=== PATIENT | male | born 1995 ===

== ENCOUNTER 2017-06-06 14:27 | Emergency (ER) | payer MEDICAID ==
[2017-06-06 14:28] VITALS: BMI 25.1
[2017-06-06 14:51] VITALS: O2SAT 98
[2017-06-06 16:05] VITALS: RESP 18; TEMP 98
--- NOTE | 2017-06-06 16:32 | RAD ---
PROCEDURE: Left Hand Radiographs. HISTORY: punched sign, pain 4-5th metacarpals COMPARISON: None. FINDINGS: BONES: Fifth metacarpal distal metaphyseal mildly comminuted fracture with dorsal apical angulation. No metacarpal phalangeal joint extension. JOINTS: Normal. No osteoarthritic changes. SOFT TISSUES: Normal. OTHER FINDINGS: None. IMPRESSION: Acute 5th metacarpal fracture -dorsal apical angulation
--- NOTE | 2017-06-06 16:42 | ED PDOC ---
Arrival/HPI - General Chief Complaint: Upper Extremity Problem/Injury Time Seen by Provider: 06/06/17 15:06 Historian: Patient - History of Present Illness Narrative History of Present Illness (Text): 06/06/17 16:38 22-year-old male presents today with left hands pain status post injury 2 days ago. Patient states he punches sign and sustained injury to the left fifth finger. Patient complaining of limited range of motion of the finger. He is complaining of pain and swelling. He denies wrist pain. No medications taken for pain at home. Patient denies numbness weakness or tingling. No other complaints Time/Duration: Other (2 days) Symptom Onset: Sudden Symptom Course: Unchanged Quality: Aching Severity Level: 6 Past Medical History - Provider Review Nursing Documentation Reviewed: Yes - Travel History Have you recently traveled outside [place] w/in the past 3 mons?: No - Infectious Disease Hx of Infectious Diseases: None - Tetanus Immunization Tetanus Immunization: Unknown - Cardiac Hx Cardiac Disorders: No - Pulmonary Hx Bronchitis: Yes Hx Pneumonia: Yes - Neurological Hx Neurological Disorder: No - Endocrine/Metabolic Hx Endocrine Disorders: No - Hematological/Oncological Hx Blood Disorders: No - Musculoskeletal/Rheumatological Hx Musculoskeletal Disorders: No - Psychiatric Hx Substance Use: Yes - Anesthesia Hx Anesthesia: No - Suicidal Assessment Feels Threatened In Home Enviroment: No Family/Social History - Physician Review Nursing Documentation Reviewed: Yes Family/Social History: Unknown Family HX Smoking Status: Current Some Days Smoker Hx Alcohol Use: Yes Hx Substance Use: Yes Substance used: marijuana Allergies/Home Meds Allergies/Adverse Reactions: Allergies No Known Allergies Allergy (Verified 06/06/17 14:51) Review of Systems - Review of Systems Constitutional: absent: Fatigue, Fevers Respiratory: absent: SOB, Cough Cardiovascular: absent: Chest Pain, Palpitations Gastrointestinal: absent: Abdominal Pain, Nausea, Vomiting Musculoskeletal: Arthralgias Skin: absent: Rash, Pruritis Neurological: absent: Headache, Dizziness Physical Exam Vital Signs Reviewed: Yes Vital Signs Temp Pulse Resp BP Pulse Ox 06/06/17 16:04 98.0 F 64 18 108/65 98 06/06/17 14:47 97.7 F 60 16 110/64 98 Temperature: Afebrile Blood Pressure: Normal Pulse: Regular Respiratory Rate: Normal Appearance: Positive for: Well-Appearing, Non-Toxic, Comfortable Pain Distress: None Mental Status: Positive for: Alert and Oriented X 3 - Systems Exam Head: Present: Atraumatic Respiratory/Chest: Present: Clear to Auscultation Cardiovascular: Present: Regular Rate and Rhythm Upper Extremity: Present: NORMAL PULSES, Tenderness (left hand; + ttp and swelling over the 4th and 5th metacarpals; limited extension of 5th finger. + ecchymosis extending from MCP to middle phalanx; sensation and distal pulses intact. cap refill <2. no wrist tenderness. ), Swelling, Neurovascularly Intact , Capillary Refill < 2s. No: Normal ROM, Erythema Neurological: Present: GCS=15 Skin: Present: Warm, Dry Psychiatric: Present: Alert, Oriented x 3 Medical Decision Making ED Course and Treatment: 06/06/17 16:40 Patient nontoxic well-appearing in no distress with stable vital signs X-rays of the left hand:FINDINGS: BONES: Fifth metacarpal distal metaphyseal mildly comminuted fracture with dorsal apical angulation. No metacarpal phalangeal joint extension. JOINTS: Normal. No osteoarthritic changes. SOFT TISSUES: Normal. OTHER FINDINGS: None. IMPRESSION: Acute 5th metacarpal fracture -dorsal apical angulation Toradol, tramadol Patient placed in ulnar gutter splint I discussed all results with patient advised to followup with the orthopedist/ hand specialist for the next 2 days. Return if symptoms worsen persist or new symptoms develop Patient verbalizes understanding of discharge instructions and need for immediate followup. all aspects of this case were discussed the attending of record. Impression: metacarpal fracture Motrin every 6 hours as needed for pain tramadol; 1 tablet every 6 hours as needed for moderate to severe pain. may cause drowsiness. Rest, ice, compression, elevation Followup with the orthopedist/hand specialist within the next 2 days Followup with primary care physician within the next 2 days Return if any other concerning symptoms develop - RAD Interpretation Radiology Orders: 06/06/17 15:07 HAND LEFT 3 VIEWS ROUTINE [RAD] Stat - Medication Orders Current Medication Orders: Discontinued Medications Ketorolac Tromethamine (Toradol) 60 mg IM STAT STA Stop: 06/06/17 15:07 Last Admin: 06/06/17 15:34 Dose: 60 mg MAR Pain Assessment Document 06/06/17 15:34 CNR (Rec: 06/06/17 15:34 CNR [id number]) Pain Reassessment Is this a pain reassessment? Yes IM Administration Charges Document 06/06/17 15:34 CNR (Rec: 06/06/17 15:34 CNR [id number]) Charges for Administration # of IM Administrations 1 Tramadol HCl (Ultram) 50 mg PO STAT STA Stop: 06/06/17 15:07 Last Admin: 06/06/17 15:34 Dose: 50 mg MAR Pain Assessment Document 06/06/17 15:34 CNR (Rec: 06/06/17 15:34 CNR [id number]) Pain Reassessment Is this a pain reassessment? Yes Procedures - Splinting Location: left hand Hand-Made Type: fiberglass Splint: ulnar (ulnar gutter) Pre-Proc Neuro Vasc Exam: normal Post-Proc Neuro Vasc Exam: normal Disposition/Present on Arrival - Present on Arrival Any Indicators Present on Arrival: No History of DVT/PE: No History of Uncontrolled Diabetes: No Urinary Catheter: No History of Decub. Ulcer: No History Surgical Site Infection Following: None - Disposition Have Diagnosis and Disposition been Completed?: Yes Diagnosis: Fracture, metacarpal Disposition: HOME/ ROUTINE Disposition Time: 16:43 Patient Plan: Discharge Patient Problems: Current Active Problems Problem Status Onset Fracture, metacarpal Acute Condition: GOOD Discharge Instructions (ExitCare): Hand Fracture (ED) Additional Instructions: Motrin every 6 hours as needed for pain tramadol; 1 tablet every 6 hours as needed for moderate to severe pain. may cause drowsiness. Rest, ice, compression, elevation Followup with the orthopedist/hand specialist within the next 2 days Followup with primary care physician within the next 2 days Return if any other concerning symptoms develop Prescriptions: Ibuprofen [Motrin] 600 mg PO Q6H PRN #20 tab PRN Reason: pain/fever reduction traMADol [Ultram] 50 mg PO Q6H PRN #6 tab PRN Reason: moderate to severe pain Referrals: Bubba Dukes MD [Primary Care Provider] - Follow up with primary Migel Juárez MD [Staff Provider] - Follow up with primary Romulo Dickey DO [Staff Provider] - Follow up with primary Jayden Welch MD [Staff Provider] - Follow up with primary [facility] [Outside] - Follow up with primary [facility] [Outside] - Follow up with primary Forms: [facility] (Maltese), WORK NOTE
[2017-06-06 17:34] VITALS: BP 110/68; PULSE 66
== END 2017-06-06 17:35 | disposition home or self-care (01) ==
LOC: ED 14:27
DX: S62.307A Unspecified fracture of fifth metacarpal bone, left hand, initial encounter for closed fracture (principal); W22.8XXA Striking against or struck by other objects, initial encounter
CPT/HCPCS: 29125; 73130; 96372; 99284; J1885

== ENCOUNTER 2017-11-27 16:35 | Emergency (ER) | payer MEDICAID ==
[2017-11-27 16:35] VITALS: BMI 25.1
[2017-11-27 16:54] VITALS: O2SAT 99
--- NOTE | 2017-11-27 18:03 | ED PDOC ---
Arrival/HPI - General Historian: Patient - History of Present Illness Time/Duration: > week Symptom Onset: Sudden Symptom Course: Unchanged Quality: Burning Severity Level: 4 Activities at Onset: Rest, Light Context: Home <Viola Gentile - Last Filed: 11/27/17 20:29> <Felix Redding - Last Filed: 11/27/17 21:43> - General Chief Complaint: Abnormal Skin Integrity Time Seen by Provider: 11/27/17 17:53 - History of Present Illness Narrative History of Present Illness (Text): 11/27/17 17:55 Pt is a 22 yr old male who presents with right forearm discoloration and edema s /p laceration with glass imbedded in the arm 2 weeks ago. Pt says he was treated at [facility], given Keflex and told to follow up with surgery. Pt admits that he stopped taking Keflex before it was done and cannot receive surgery to remove the glass until his insurance is cleared. Reports that he noticed recently, a sharp pain in the forearm and discoloration on the ventral aspect of the wrist. Denies loss of motor or sensation of the right arm but is point tender and taut around the lacerations. Received tetanus booster while at [facility]. (Viola Gentile) Past Medical History - Provider Review Nursing Documentation Reviewed: Yes - Travel History Have you recently traveled outside [place] w/in the past 3 mons?: No - Infectious Disease Hx of Infectious Diseases: None - Tetanus Immunization Tetanus Immunization: Unknown - Cardiac Hx Cardiac Disorders: No - Pulmonary Hx Respiratory Disorders: Yes Hx Bronchitis: Yes Hx Pneumonia: Yes - Neurological Hx Neurological Disorder: No - Renal Hx Renal Disorder: No - Endocrine/Metabolic Hx Endocrine Disorders: No - Hematological/Oncological Hx Blood Disorders: No - Integumentary Hx Dermatological Disorder: Yes Other/Comment: FB - Musculoskeletal/Rheumatological Hx Musculoskeletal Disorders: No - Gastrointestinal Hx Gastrointestinal Disorders: No - Genitourinary/Gynecological Hx Genitourinary Disorders: No - Psychiatric Hx Psychophysiologic Disorder: No Hx Substance Use: Yes (CANNABIS) - Anesthesia Hx Anesthesia: No - Suicidal Assessment Feels Threatened In Home Enviroment: No <Viola Gentile - Last Filed: 11/27/17 20:29> Family/Social History - Physician Review Nursing Documentation Reviewed: Yes Family/Social History: Unknown Family HX Smoking Status: Current Some Days Smoker Hx Alcohol Use: Yes Frequency of alcohol use: Socially Hx Substance Use: Yes (CANNABIS) Substance used: marijuana <Viola Gentile - Last Filed: 11/27/17 20:29> Allergies/Home Meds <Viola Gentile - Last Filed: 11/27/17 20:29> <MinaFelix calix - Last Filed: 11/27/17 21:43> Allergies/Adverse Reactions: Allergies No Known Allergies Allergy (Verified 11/27/17 16:49) Review of Systems - Review of Systems Constitutional: Normal Eyes: Normal ENT: Normal Respiratory: Normal Cardiovascular: Normal Gastrointestinal: Normal Genitourinary Male: Normal Musculoskeletal: Normal Skin: Normal, Other (Right forearm pain) Neurological: Normal Endocrine: Normal Hemo/Lymphatic: Normal Psychiatric: Normal <Viola Gentile - Last Filed: 11/27/17 20:29> Physical Exam Vital Signs Reviewed: Yes Temperature: Afebrile Blood Pressure: Normal Pulse: Regular Respiratory Rate: Normal Appearance: Positive for: Well-Appearing, Non-Toxic, Comfortable Pain Distress: None Mental Status: Positive for: Alert and Oriented X 3 - Systems Exam Head: Present: Atraumatic, Normocephalic Pupils: Present: PERRL Extroacular Muscles: Present: EOMI Conjunctiva: Present: Normal Mouth: Present: Moist Mucous Membranes Neck: Present: Normal Range of Motion Respiratory/Chest: Present: Clear to Auscultation, Good Air Exchange. No: Respiratory Distress, Accessory Muscle Use Cardiovascular: Present: Regular Rate and Rhythm, Normal S1, S2. No: Murmurs Abdomen: No: Tenderness, Distention, Peritoneal Signs Back: Present: Normal Inspection Upper Extremity: Present: Normal Inspection. No: Cyanosis, Edema Lower Extremity: Present: Normal Inspection. No: Edema Neurological: Present: GCS=15, CN II-XII Intact, Speech Normal Skin: Present: Warm, Dry, Normal Color. No: Rashes Psychiatric: Present: Alert, Oriented x 3, Normal Insight, Normal Concentration <Viola Gentile - Last Filed: 11/27/17 20:29> Vital Signs Temp Pulse Resp BP Pulse Ox 11/27/17 16:49 99.0 F 90 16 122/74 99 Medical Decision Making <Viola Gentile - Last Filed: 11/27/17 20:29> <Felix Redding - Last Filed: 11/27/17 21:43> ED Course and Treatment: 11/27/17 18:03 Impression Pt is a 22 yr old male who presents with right forearm discoloration and edema s /p laceration with glass imbedded in the arm 2 weeks ago. On exam, there is mild erythema around the right wrist and evidence of granulation tissue around lacerations with mild edema; motor and sensation intact Plan Right forearm XR Assess and dispo Progress note 11/27/17 19:18 Labs wnl results of XR still pending dose of Keflex 250mg po STAT (Viola Gentile) - Lab Interpretations Lab Results: 11/27/17 18:45 11/27/17 18:45 Lab Results 11/27/17 18:45: Sodium 142, Potassium 4.1, Chloride 105, Carbon Dioxide 25, Anion Gap 16, BUN 13, Creatinine 0.8, Est GFR ( Amer) > 60, Est GFR (Non- Af Amer) > 60, Random Glucose 92, Calcium 9.6, Total Bilirubin 0.8, AST 24, ALT 30, Alkaline Phosphatase 78, Total Protein 7.9, Albumin 4.7, Globulin 3.2, Albumin/Globulin Ratio 1.5 11/27/17 18:45: Urine Color Yellow, Urine Appearance Clear, Urine pH 6.0, Ur Specific [place] >= 1.030, Urine Protein Negative, Urine Glucose (UA) Negative, Urine Ketones Negative, Urine Blood Trace-intact H, Urine Nitrate Negative, Urine Bilirubin Negative, Urine Urobilinogen 0.2, Ur Leukocyte Esterase Negative , Urine RBC 1 - 3, Urine WBC 0 - 2, Ur Epithelial Cells 0 - 2, Urine Bacteria Few 11/27/17 18:45: WBC 5.8, RBC 4.84, Hgb 14.9, Hct 40.9 L, MCV 84.5, MCH 30.8, MCHC 36.4, RDW 12.0, Plt Count 364, MPV 9.9, Gran % 56.8, Lymph % (Auto) 33.7, [place]ion % (Auto) 8.6 H, Eos % (Auto) 0.7 L, Baso % (Auto) 0.2, Gran # 3.30, Lymph # (Auto) 2.0, Irion # (Auto) 0.5, Eos # (Auto) 0.0, Baso # (Auto) 0.01 - RAD Interpretation Radiology Orders: 11/27/17 17:53 FOREARM RIGHT [RAD] Stat - Medication Orders Current Medication Orders: Discontinued Medications Cephalexin Monohydrate (Keflex) 250 mg PO STAT STA PRN Reason: Protocol Stop: 11/27/17 19:17 - PA / REHABILITATION CONSULTANT / Resident Statement MD/DO has reviewed & agrees with the documentation as recorded. <Felix Redding - Last Filed: 11/27/17 21:43> Disposition/Present on Arrival - Present on Arrival Any Indicators Present on Arrival: Yes History of DVT/PE: No History of Uncontrolled Diabetes: No Urinary Catheter: No History of Decub. Ulcer: No History Surgical Site Infection Following: None - Disposition Have Diagnosis and Disposition been Completed?: Yes Disposition Time: 19:52 Patient Plan: Discharge <Viola Gentile - Last Filed: 11/27/17 20:29> <Felix Redding - Last Filed: 11/27/17 21:43> - Disposition Diagnosis: Ecchymosis of forearm, Foreign body (FB) in soft tissue Disposition: HOME/ ROUTINE Patient Problems: Current Active Problems Problem Status Onset Ecchymosis of forearm Acute Foreign body (FB) in soft tissue Acute Condition: GOOD Discharge Instructions (ExitCare): Foreign Body in Skin (DC) Additional Instructions: Rick, thank you for letting us take care of you today. Your provider was KAREEM Gentile. You were treated for swelling due to glass in the forearm. The emergency medical care you received today was directed at your acute symptoms. If you were prescribed any medication, please fill it and take as directed. It may take several days for your symptoms to resolve. Return to the Emergency Department if your symptoms worsen, do not improve, or if you have any other problems. Please follow up with your Primary Doctor if you experience any further irritation of the arm Take all the medication we have instructed your to take to prevent infection Please contact your doctor or call one of the physicians/clinics you have been referred to that are listed on the Patient Visit Information form that is included in your discharge packet. Bring any paperwork you were given at discharge with you along with any medications you are taking to your follow up visit. Our treatment cannot replace ongoing medical care by a primary care provider (PCP) outside of the emergency department. Thank you for allowing the [facility] team to be part of your care today. If you had an X-Ray or CT scan: A Radiologist will review the ED reading if any change in treatment is needed we will contact you. If you had a blood, urine, or wound culture: It will take several days for the results, if any change in treatment is needed we will contact you. Prescriptions: Cephalexin [Keflex] 500 mg PO BID 5 Days #10 cap Referrals: Drew Higgins, [Primary Care Provider] - Follow up with primary Forms: [employer] (Bahraini), WORK NOTE
[2017-11-27 19:02] LABS: BASO # 0.01 K/mm3 (0.0-2.0); BASO % 0.2 % (0.0-3.0); EOS % 0.7 % (1.5-5.0); GRAN # 3.3 (1.4-6.5); GRAN % 56.8 % (50.0-68.0); HEMOGLOBIN 14.9 g/dL (14.0-18.0); LYMPH % 33.7 % (22.0-35.0); MEAN CELL VOLUME 84.5 fl (80.0-105.0); MEAN CORPUSCULAR HEMOGLOBIN 30.8 pg (25.0-35.0); MEAN CORPUSCULAR HGB CONC 36.4 g/dl (31.0-37.0); MEAN PLATELET VOLUME 9.9 fl (7.0-11.0); MONO # 0.5 (0.1-0.6); MONO % 8.6 % (1.0-6.0); RBC 4.84 10^6/uL (3.5-6.1); WHITE BLOOD COUNT 5.8 10^3/ul (4.5-11.0)
[2017-11-27 19:14] LABS: ALB/GLOB RATIO 1.5 (1.1-1.8); ALBUMIN 4.7 g/dL (3.0-4.8); ALT/SGPT 30 U/L (7-56); AST/SGOT 24 U/L (17-59); BLOOD UREA NITROGEN 13 mg/dL (7-21); CALCIUM 9.6 mg/dL (8.4-10.5); GFR AFRICAN-AMERICAN > 60; GFR NON-AFRICAN AMERICAN > 60; URINE BILIRUBIN NEGATIVE (NEGATIVE); URINE BLOOD TRACE-INTACT (NEGATIVE); URINE GLUCOSE (UA) NEGATIVE (NEGATIVE); URINE LEUKOCYTE ESTERASE NEGATIVE Leu/uL (NEGATIVE); URINE PROTEIN NEGATIVE mg/dL (<30 mg/dL); URINE UROBILINOGEN 0.2 E.U./dL (<1 E.U./dL)
[2017-11-27 19:29] LABS: URINE APPEARANCE CLEAR (CLEAR); URINE COLOR YELLOW (YELLOW)
[2017-11-27 19:30] LABS: URINE BACTERIA FEW (NEG); URINE EPITHELIAL CELLS 0 - 2 /hpf (0-5); URINE WBC 0 - 2 /hpf (0-6)
[2017-11-27 22:05] VITALS: BP 125/82; PULSE 82; RESP 18; TEMP 98.9
--- NOTE | 2017-11-28 08:14 | RAD ---
PROCEDURE: Radiographs of the Right Forearm HISTORY: glass in arm COMPARISON: None available. TECHNIQUE: Frontal and lateral views obtained. FINDINGS: BONES: No fracture or destructive lesion. JOINT SPACES: Unremarkable. OTHER FINDINGS: A geometrically shaped retained radiodense foreign body is seen in the volar soft tissues of the distal right forearm) quadrilateral shaped). Trace subcutaneous reactive changes are appreciated superficial to it. No definite additional retained radiodense foreign body appreciated. IMPRESSION: Solitary retained radiodense foreign body identified at the volar distal right forearm soft tissues.
== END 2017-11-27 21:04 | disposition home or self-care (01) ==
LOC: ED 16:35
DX: S50.11XD Contusion of right forearm, subsequent encounter (principal); S50.8 Other superficial injuries of forearm; W22.8XXD Striking against or struck by other objects, subsequent encounter

== ENCOUNTER 2018-07-25 14:55 | Emergency (ER) | payer MEDICAID ==
[2018-07-25 15:04] VITALS: BMI 26.6
[2018-07-25 15:08] VITALS: RESP 18; O2SAT 100
--- NOTE | 2018-07-25 15:19 | ED PDOC ---
Arrival/HPI - General Chief Complaint: Cough, Cold, Congestion Historian: Patient - History of Present Illness Narrative History of Present Illness (Text): 07/25/18 15:13 23 y/o male, pmh including bronchitis, nkda, c/o coughing and wheezing x 2 days plus rt. hand 2nd digit finger injury x 1.5 months. Pt. stated that he is a chronic smoker, been coughing with wheezing, feels like his usual bronchitis, no shortness of breath or pleuritic pain, no chest pain. Pt. stated that he punched an object about 1.5 months, been having pain and swelling to 2nd digit PIPJ, no numbness or tingling, no flexion or extension, no other medical or psychological complaints. Past Medical History - Provider Review Nursing Documentation Reviewed: Yes - Infectious Disease Hx of Infectious Diseases: None - Tetanus Immunization Tetanus Immunization: Unknown - Cardiac Hx Cardiac Disorders: No - Pulmonary Hx Respiratory Disorders: Yes Hx Bronchitis: Yes Hx Pneumonia: Yes - Neurological Hx Neurological Disorder: No - Renal Hx Renal Disorder: No - Endocrine/Metabolic Hx Endocrine Disorders: No - Hematological/Oncological Hx Blood Disorders: No - Integumentary Hx Dermatological Disorder: Yes Other/Comment: FB - Musculoskeletal/Rheumatological Hx Musculoskeletal Disorders: No - Gastrointestinal Hx Gastrointestinal Disorders: No - Genitourinary/Gynecological Hx Genitourinary Disorders: No - Psychiatric Hx Psychophysiologic Disorder: No Hx Substance Use: Yes (CANNABIS) - Anesthesia Hx Anesthesia: No - Suicidal Assessment Feels Threatened In Home Enviroment: No Family/Social History - Physician Review Nursing Documentation Reviewed: Yes Family/Social History: Unknown Family HX Smoking Status: Current Some Days Smoker Hx Alcohol Use: Yes Hx Substance Use: Yes (CANNABIS) Substance used: marijuana Allergies/Home Meds Allergies/Adverse Reactions: Allergies No Known Allergies Allergy (Verified 07/25/18 15:11) Review of Systems - Review of Systems Constitutional: absent: Fatigue, Fevers Eyes: absent: Vision Changes ENT: absent: Hearing Changes Respiratory: Cough, Sputum, Wheezing. absent: SOB Cardiovascular: absent: Chest Pain Gastrointestinal: absent: Abdominal Pain, Diarrhea, Nausea, Vomiting Musculoskeletal: Arthralgias, Joint Swelling. absent: Back Pain, Neck Pain, Myalgias Skin: absent: Rash, Pruritis Neurological: absent: Headache Psychiatric: absent: Anxiety, Depression, Suicidal Ideation Physical Exam Vital Signs Reviewed: Yes Vital Signs Temp Pulse Resp BP Pulse Ox 07/25/18 15:07 97.7 F 80 18 108/70 100 Temperature: Afebrile Blood Pressure: Normal Pulse: Regular Respiratory Rate: Normal Appearance: Positive for: Well-Appearing, Non-Toxic, Comfortable Pain Distress: Mild Mental Status: Positive for: Alert and Oriented X 3 - Systems Exam Head: Present: Atraumatic, Normocephalic Pupils: Present: PERRL Extroacular Muscles: Present: EOMI Conjunctiva: Present: Normal Mouth: Present: Moist Mucous Membranes Neck: Present: Normal Range of Motion Respiratory/Chest: Present: Wheezes, Rhonchi. No: Respiratory Distress, Accessory Muscle Use, Decreased Breath Sounds, Rales, Retracting, Tachypneic, Tender to Palpation Cardiovascular: Present: Regular Rate and Rhythm, Normal S1, S2. No: Murmurs Abdomen: No: Tenderness, Distention, Peritoneal Signs Back: Present: Normal Inspection Upper Extremity: Present: Normal Inspection, Other (Rt. hand 2nd digit: +ttp and swelling to the PIPJ region with skin intact, no cellulitis or ulcer, FROM without limitation, sensation intact, motor 5/5, +radial pulse, capillary refill< 2 seconds, neurovascular intact. ). No: Cyanosis, Edema Lower Extremity: Present: Normal Inspection. No: Edema Neurological: Present: GCS=15, CN II-XII Intact, Speech Normal Skin: Present: Warm, Dry, Normal Color. No: Rashes Psychiatric: Present: Alert, Oriented x 3, Normal Insight, Normal Concentration Medical Decision Making ED Course and Treatment: 07/25/18 15:21 -EKG -CXR -Duoneb/prednisone/motrin -Observe and reassess 07/25/18 17:59 -PERC is negative -Rt. hand 2nd digit xray: Marginal erosion or juxta-articular erosion along the radial side distal aspect 2nd proximal phalanx with surrounding soft tissue. Rule out gout. Rule out inflammatory arthropathy. No additional abnormality. -Chest xray No active disease. -I reviewed the [facility], last script for narcotic in 11/2017, he is requesting stronger pain med, tramadol ordered for him. -Pt. feels well, request stronger pain med for his finger, percocet ordered which he felt well. -Wheezing resolved, bilateral feeling completed relief, no chest pain or shortness of breath. -Discharge home with zithromax, prednisone, albuterol MDI, mobic, bromfed dm, tramadol for severe pain to the finger, finger splint, follow up with your own pmd and orthopedic/bakelite molder within 2 days, return to the ER for any new or worsening signs or symptoms. - RAD Interpretation Radiology Orders: -Rt. hand 2nd digit xray: Date of service: 07/25/2018 PROCEDURE: Right Index finger radiographs. HISTORY: rt. hand 2nd PIPJ pain and swelling x 1.5 months COMPARISON: None. TECHNIQUE: AP radiograph of the right hand, as well as spot oblique and lateral images of index finger were obtained. FINDINGS: RIGHT INDEX FINGER: No acute fracture. There is an articular erosion along the radial aspect of the distal 2nd proximal phalanx. This may be juxta-articular and could reflect gouty arthritis. Correlate with urate levels soft tissue swelling is noted about the affected joint. No other erosive changes are appreciated elsewhere throughout the hand. Remainder of the right hand (as seen on the AP view) grossly intact. JOINTS: As above SOFT TISSUES: Normal. OTHER FINDINGS: None. IMPRESSION: Marginal erosion or juxta-articular erosion along the radial side distal aspect 2nd proximal phalanx with surrounding soft tissue. Rule out gout. Rule out inflammatory arthropathy. No additional abnormality. -Chest xray Date of service: 07/25/2018 HISTORY: cough and wheezing COMPARISON: No prior. TECHNIQUE: Chest PA and lateral FINDINGS: LUNGS: No active pulmonary disease. PLEURA: No significant pleural effusion identified. No pneumothorax apparent. CARDIOVASCULAR: No aortic atherosclerotic calcification present. Normal cardiac size. No pulmonary vascular congestion. OSSEOUS STRUCTURES: No significant abnormalities. VISUALIZED UPPER ABDOMEN: Normal. OTHER FINDINGS: None. IMPRESSION: No active disease. Portfolio Assistant: Radiologist - PA / [employer] / Resident Statement /DO has reviewed & agrees with the documentation as recorded. Disposition/Present on Arrival - Present on Arrival Any Indicators Present on Arrival: No History of DVT/PE: No History of Uncontrolled Diabetes: No Urinary Catheter: No History of Decub. Ulcer: No History Surgical Site Infection Following: None - Disposition Have Diagnosis and Disposition been Completed?: Yes Diagnosis: Bronchitis, Finger pain Disposition: HOME/ ROUTINE Disposition Time: 17:59 Patient Plan: Discharge Condition: IMPROVED Additional Instructions: -Discharge home with zithromax, prednisone, albuterol MDI, mobic, bromfed dm, tramadol for severe pain to the finger, finger splint, follow up with your own pmd and orthopedic/bakelite molder within 2 days, return to the ER for any new or worsening signs or symptoms. Prescriptions: Albuterol HFA [Ventolin HFA 90 mcg/actuation (8 g)] 2 puff IH [id number] PRN #1 inhaler PRN Reason: Other Azithromycin [Zithromax] 250 mg PO DAILY #4 tab Brompheniramine/Pseudoephed/Dm [Bromfed Dm Cough 118 ml] 10 ml PO QID PRN #250 ml PRN Reason: Other Meloxicam [Mobic] 15 mg PO DAILY PRN #14 tab PRN Reason: Other Prednisone 50 mg PO DAILY #4 tablet traMADol [Ultram] 50 mg PO QID #12 tab Referrals: Bubba Dukes MD [Primary Care Provider] - Follow up with primary Sandeep Martínez III, MD [Medical Doctor] - Follow up with primary Forms: [employer] (Portuguese), WORK NOTE
[2018-07-25] MEDS: Albuterol-Ipratrop 3 mg / 0.5 (3 ml) UD IH SCH ×2 (15:51→16:29)
--- NOTE | 2018-07-25 16:21 | RAD ---
Date of service: 07/25/2018 PROCEDURE: Right Index finger radiographs. HISTORY: rt. hand 2nd PIPJ pain and swelling x 1.5 months COMPARISON: None. TECHNIQUE: AP radiograph of the right hand, as well as spot oblique and lateral images of index finger were obtained. FINDINGS: RIGHT INDEX FINGER: No acute fracture. There is an articular erosion along the radial aspect of the distal 2nd proximal phalanx. This may be juxta-articular and could reflect gouty arthritis. Correlate with urate levels soft tissue swelling is noted about the affected joint. No other erosive changes are appreciated elsewhere throughout the hand. Remainder of the right hand (as seen on the AP view) grossly intact. JOINTS: As above SOFT TISSUES: Normal. OTHER FINDINGS: None. IMPRESSION: Marginal erosion or juxta-articular erosion along the radial side distal aspect 2nd proximal phalanx with surrounding soft tissue. Rule out gout. Rule out inflammatory arthropathy. No additional abnormality.
--- NOTE | 2018-07-25 16:22 | RAD ---
Date of service: 07/25/2018 HISTORY: cough and wheezing COMPARISON: No prior. TECHNIQUE: Chest PA and lateral FINDINGS: LUNGS: No active pulmonary disease. PLEURA: No significant pleural effusion identified. No pneumothorax apparent. CARDIOVASCULAR: No aortic atherosclerotic calcification present. Normal cardiac size. No pulmonary vascular congestion. OSSEOUS STRUCTURES: No significant abnormalities. VISUALIZED UPPER ABDOMEN: Normal. OTHER FINDINGS: None. IMPRESSION: No active disease.
[2018-07-25 17:08] VITALS: TEMP 97.8
[2018-07-25] MEDS ORDERED: Oxycodone/Acetaminophen 5/325 mg Tab PO STA (17:40)
[2018-07-25 18:42] VITALS: BP 109/73; PULSE 75
--- NOTE | 2018-07-26 08:07 | CARD ---
APPROVED REPORT Date of service: 07/25/2018 EKG Measurement Heart [id number] <Conclusion> Sinus Arrythmia. Rightward axis
== END 2018-07-25 18:38 | disposition home or self-care (01) ==
LOC: ED 14:55
DX: J40 Bronchitis, not specified as acute or chronic (principal); M79.644 Pain in right finger(s); F17.210 Nicotine dependence, cigarettes, uncomplicated